=== PATIENT | female | born 1980 | race Two or more races ===

== ENCOUNTER 2018-01-12 09:00 | Emergency (ER) | payer BC ==
[~2018-01-12] VITALS: Ht 170.2 cm; Wt 83.0 kg
[2018-01-12 09:00] VITALS: BP 144/79
--- NOTE | 2018-01-12 09:32 | NUR ---
ANXIETY, INSOMIA FOR POSSIBLE BENZO WITHDRAWAL. PT AAOX3, VSS. DENIES CP, SOB, DIZZINESS, N/V, WEAKNESS OR ANY OTHER DISCOMFORT @ THIS TIME. PT SEEN & EVAL'D BY DR. BRANTLEY. WILL CONT TO MONITOR.
== END 2018-01-12 09:36 | disposition home or self-care (01) ==
LOC: ER 09:14
DX: F13.20 Sedative, hypnotic or anxiolytic dependence, uncomplicated (principal)
CPT/HCPCS: 99283; A4606; Z7610